=== PATIENT | female | born 1980 | race Caucasian/White ===

== ENCOUNTER 2017-01-23 13:21 | Emergency (ER) | payer OTHER ==
[~2017-01-23] VITALS: Ht 172.7 cm; Wt 70.8 kg
[2017-01-23 15:16] VITALS: BP 142/99
[2017-01-23] MEDS ORDERED: DITROPAN5 MG PO (15:16)
== END 2017-01-23 15:22 | disposition home or self-care (01) ==
LOC: EME 13:21
DX: S00.11XA Contusion of right eyelid and periocular area, initial encounter (principal); S06.0X0A Concussion without loss of consciousness, initial encounter; W18.30XA Fall on same level, unspecified, initial encounter; Y92.59 Other trade areas as the place of occurrence of the external cause; G35 Multiple sclerosis
CPT/HCPCS: 70150; 99281; 99283